=== PATIENT | female | born 1995 | race Two or more races ===

== ENCOUNTER 2019-05-10 18:32 | Emergency (ER) | payer BC ==
[~2019-05-10] VITALS: Ht 167.6 cm; Wt 80.3 kg
[2019-05-10 18:38] VITALS: Ht 167.6 cm; Wt 80.3 kg
[2019-05-10 23:56] VITALS: BP 132/63
== END 2019-05-10 23:56 | disposition home or self-care (01) ==
LOC: ED 18:32
DX: S39.012A Strain of muscle, fascia and tendon of lower back, initial encounter (principal); M54.40 Lumbago with sciatica, unspecified side; X58.XXXA Exposure to other specified factors, initial encounter; Y93.89 Activity, other specified; Y92.89 Other specified places as the place of occurrence of the external cause; Y99.8 Other external cause status
CPT/HCPCS: J1885